=== PATIENT | female | born 1955 | race Caucasian/White ===

== ENCOUNTER 2016-07-06 19:54 | Emergency (ER) | payer BC ==
[~2016-07-06 19:54] MED LIST: ALLEGRA180 PO; P125 PO
[2016-07-06 20:21] LABS: BASOPHILS 1.4 %; BASOPHILS ABSOLUTE 0.11 10/3/uL (0.0-0.16); EOSINOPHILS 5.2 %; EOSINOPHILS ABSOLUTE 0.41 10/3/uL (0.0-0.53); HEMATOCRIT 42.3 % (36.0-48.0); HEMOGLOBIN 14.8 g/dL (12.0-16.0); IMMATURE GRANULOCYTES 0.3 %; IMMATURE GRANULOCYTES ABSOLUTE 0.02 10/3/uL (0.0-0.11); LYMPHOCYTES 28.4 %; LYMPHOCYTES ABSOLUTE 2.25 10/3/uL (0.67-4.30); MEAN CORPUSCULAR VOLUME 91.4 fL (80-100); MEAN PLATELET VOLUME 10.1 fL (9.2-13.0); MONOCYTES 7.7 %; MONOCYTES ABSOLUTE 0.61 10/3/uL (0.21-1.20); NEUTROPHILS ABSOLUTE 4.51 10/3/uL (2.02-8.40); PLATELET COUNT 313 10/3/uL (150-400); RBC DISTRIBUTION WIDTH 13.2 % (12.0-16.0); RED CELL COUNT 4.63 10/6/uL (4.0-5.6); WHITE BLOOD CELLS 7.9 10/3/uL (4.5-10.5)
[2016-07-06 20:22] LABS: MANUAL DIFF NO %
[2016-07-06 20:28] LABS: INTERNATIONAL NORMAL RATI 1.1 UNITS (-); PARTIAL THROMBO TIME 33.2 SEC (22.5-37.2); PROTIME (NOT ORD) 14.1 SEC (12.0-14.5)
[2016-07-06 20:35] LABS: BUN (BLOOD UREA NITROGEN) 13 MG/DL (6-23); CALCIUM, SERUM 9.2 MG/DL (8.5-10.4); CHEST PAIN PROFILE TAT 0 Hrs 18 Mins; CHLORIDE, SERUM 101 MMOL/L (96-112); CO2 (CARBON DIOXIDE) 30 MMOL/L (24-34); CREATININE 0.82 MG/DL (0.55-1.02); GFR AFRICAN AMERICAN 90 ML/MIN (>=60); GFR NON AFRICAN AMERICAN 78 ML/MIN (>=60); GLUCOSE, SERUM 92 MG/DL (60-99); POTASSIUM, SERUM 3.9 MMOL/L (3.5-5.3); SODIUM, SERUM 139 MMOL/L (135-148); TROPONIN I <0.02 NG/ML (<0.05)
== END 2016-07-07 02:49 | disposition home or self-care (01) ==
LOC: ER 19:54
PROVIDERS: Hospitalist
DX: R20.2 Paresthesia of skin (principal); Z85.828 Personal history of other malignant neoplasm of skin; Z79.899 Other long term (current) drug therapy
CPT/HCPCS: 70450; 71010; 80048; 82962; 83735; 84484; 85025; 85610; 85730; 93005; 99284